=== PATIENT | female | born 1995 | race Caucasian/White ===

== ENCOUNTER → 2017-07-07 | Outpatient (CLI) | payer OTHER ==
[~2017-07-07] MED LIST: ACET500 PO; ALBU90OI INH; BIRTH CONTROL; CEFD300 PO; CODACE30 PO; CODACEE120 PO; CRUTCH USE; DIAZ2 PO; DIPH25 PO; ENOX40I SC; ERYT1OIN RIGHTEYE; ERYT500 PO; GUAI600T33 PO; HYDACE7.5L PO; IBUP100S PO; LIDO700A20 TOP; NITR100CA PO; OXYACE5T PO; RXIBUPSY PO; SULTRIEL; Zithromax250 MG PO
[2017-07-09 13:13] LABS: HPV Genotype 16 Not Detected (NOTDET); HPV Genotype 18 Not Detected (NOTDET); HPV High Risk Other Not Detected (NOTDET)
== END | disposition home or self-care (01) ==
LOC: LAB SHORT 16:41 → LAB 16:41
PROVIDERS: Obstetrics & Gynecology
DX: Z01.419 Encounter for gynecological examination (general) (routine) without abnormal findings (principal)
CPT/HCPCS: 87624; G0123

== ENCOUNTER 2017-09-21 19:20 | Emergency (ER) | payer OTHER ==
[~2017-09-21] VITALS: Ht 157.5 cm; Wt 72.6 kg
[~2017-09-21 19:20] MED LIST changes: -LIDO700A20 TOP
[2017-09-21] MEDS ORDERED: LIDO700A20 TOP (19:50)
== END 2017-09-21 20:05 | disposition home or self-care (01) ==
LOC: ER 19:20
DX: S16.1XXA Strain of muscle, fascia and tendon at neck level, initial encounter (principal); V43.52XA Car driver injured in collision with other type car in traffic accident, initial encounter; Z87.891 Personal history of nicotine dependence
CPT/HCPCS: 99282

== ENCOUNTER → 2018-08-25 | Outpatient (CLI) | payer OTHER ==
[~2018-08-25] MED LIST changes: +LIDO700A20 TOP; +Prenatal Compl1 EACH PO
== END ==
LOC: LAB 16:00 → LAB SHORT 16:00
DX: O30.033 Twin pregnancy, monochorionic/diamniotic, third trimester (principal); Z3A.35 35 weeks gestation of pregnancy
CPT/HCPCS: 87081; 87653

== ENCOUNTER 2018-08-27 06:07 | Inpatient (IN) | payer OTHER ==
[~2018-08-27] VITALS: Ht 160 cm; Wt 0.2 kg
[~2018-08-27 06:07] MED LIST changes: -Prenatal Compl1 EACH PO
[2018-08-27] MEDS ORDERED: Prenatal Compl1 EACH PO (06:22)
[2018-08-27 06:38] LABS: BASOPHILS ABSOLUTE AUTO 0.02 K/mm3 (0.00-0.23); BASOPHILS PERCENT AUTO 0 % (0-2); EOSINOPHILS ABSOLUTE AUTO 0.05 K/mm3 (0.00-0.68); EOSINOPHILS PERCENT AUTO 1 % (0-6); Hematocrit 28.6 % (33.0-51.0); Hemoglobin 8.8 g/dL (11.5-16.0); IMMATURE GRAN ABSOLUTE AUTO 0.11 K/mm3 (0.00-0.10); IMMATURE GRAN PERCENT AUTO 1 % (0-1); LYMPHOCYTES ABSOLUTE AUTO 1.91 K/mm3 (0.84-5.20); LYMPHOCYTES PERCENT AUTO 18 % (21-46); MONOCYTES PERCENT AUTO 5 % (4-13); Mean Corpuscular HGB 23.3 pg (26.0-34.0); Mean Corpuscular HGB Conc 30.8 g/dL (31.5-36.5); Mean Corpuscular Volume 76 fL (80-100); Mean Platelet Volume 9.7 fL (9.1-12.4); NEUTROPHILS ABSOLUTE AUTO 7.93 K/mm3 (1.96-9.15); NEUTROPHILS PERCENT AUTO 75 % (41-73); Platelet Count 234 K/mm3 (150-400); RDW Coefficient Variation 16.8 % (11.7-14.2); Red Blood Cell Count 3.78 M/mm3 (3.80-5.20); White Blood Cell Count 10.52 K/mm3 (4.00-11.30)
[2018-08-27 19:14] LABS: Hematocrit 24.5 % (33.0-51.0); Hemoglobin 7.3 g/dL (11.5-16.0)
--- NOTE | 2018-08-27 20:42 | NUR ---
HELPED PATIENT TO BATHROOM, DENIES DIZZINESS, DENIES SHORTNESS OF BREATH, BLEEDING IS SCANT, FUNDUS IS FIRM. VITALS ARE WITHIN NORMAL RANGE AT THIS TIME.
[2018-08-28 06:53] LABS: BASOPHILS ABSOLUTE AUTO 0.01 K/mm3 (0.00-0.23); BASOPHILS PERCENT AUTO 0 % (0-2); EOSINOPHILS ABSOLUTE AUTO 0.05 K/mm3 (0.00-0.68); EOSINOPHILS PERCENT AUTO 0 % (0-6); Hematocrit 22.8 % (33.0-51.0); Hemoglobin 6.7 g/dL (11.5-16.0); IMMATURE GRAN ABSOLUTE AUTO 0.11 K/mm3 (0.00-0.10); IMMATURE GRAN PERCENT AUTO 1 % (0-1); LYMPHOCYTES ABSOLUTE AUTO 1.81 K/mm3 (0.84-5.20); LYMPHOCYTES PERCENT AUTO 16 % (21-46); MONOCYTES PERCENT AUTO 6 % (4-13); Mean Corpuscular HGB 22.9 pg (26.0-34.0); Mean Corpuscular HGB Conc 29.4 g/dL (31.5-36.5); Mean Corpuscular Volume 78 fL (80-100); NEUTROPHILS ABSOLUTE AUTO 8.59 K/mm3 (1.96-9.15); NEUTROPHILS PERCENT AUTO 76 % (41-73); Platelet Count 199 K/mm3 (150-400); RDW Coefficient Variation 16.6 % (11.7-14.2); RDW Standard Deviation 46.7 fL (35.1-46.3); Red Blood Cell Count 2.92 M/mm3 (3.80-5.20); White Blood Cell Count 11.27 K/mm3 (4.00-11.30)
--- NOTE | 2018-08-28 08:19 | NUR ---
Pt sleeping soundly.
--- NOTE | 2018-08-28 19:52 | NUR ---
fresh ice water given to pt.
--- NOTE | 2018-08-28 22:53 | NUR ---
PT TEARFUL THAT SHE IS NOT PUMPING MUCH AT THIS TIME, RN ASSURED PT THAT THIS IS NORMAL. PT SUPPLEMENTING WITH FORMULA FOR THE FIRST TIME NOW, RN ASSURED PT THAT THIS DOES NOT MEAN SHE CAN'T BREASTFEED OR THAT SHE HAS TO SWITCH TO FORMULA, JUST THAT SHE WILL BE SUPPLEMENTING WITH IT UNTIL HER SUPPLY INCREASES. PT ENCOURAGED TO KEEP AND PUMPING, DRINK PLENTY OF WATER, AND MOTHERS MILK TEA WAS GIVEN.
[2018-08-29 06:30] LABS: BASOPHILS ABSOLUTE AUTO 0.04 K/mm3 (0.00-0.23); BASOPHILS PERCENT AUTO 0 % (0-2); EOSINOPHILS ABSOLUTE AUTO 0.16 K/mm3 (0.00-0.68); EOSINOPHILS PERCENT AUTO 1 % (0-6); Hematocrit 24.9 % (33.0-51.0); Hemoglobin 7.4 g/dL (11.5-16.0); IMMATURE GRAN ABSOLUTE AUTO 0.22 K/mm3 (0.00-0.10); IMMATURE GRAN PERCENT AUTO 2 % (0-1); LYMPHOCYTES ABSOLUTE AUTO 2.05 K/mm3 (0.84-5.20); LYMPHOCYTES PERCENT AUTO 15 % (21-46); MONOCYTES PERCENT AUTO 5 % (4-13); Mean Corpuscular HGB 23.6 pg (26.0-34.0); Mean Corpuscular HGB Conc 29.7 g/dL (31.5-36.5); Mean Corpuscular Volume 79 fL (80-100); Mean Platelet Volume 9.6 fL (9.1-12.4); NEUTROPHILS ABSOLUTE AUTO 10.83 K/mm3 (1.96-9.15); NEUTROPHILS PERCENT AUTO 77 % (41-73); Platelet Count 227 K/mm3 (150-400); RDW Coefficient Variation 16.9 % (11.7-14.2); RDW Standard Deviation 47.8 fL (35.1-46.3); Red Blood Cell Count 3.14 M/mm3 (3.80-5.20)
--- NOTE | 2018-08-29 15:02 | NUR ---
Pt resting in bed, changing nb clothes and diaper. Other nb asleep in open crib at pt's bedside. Pt denies needs at this time.
--- NOTE | 2018-08-29 19:31 | NUR ---
RN CHECKED WITH PT ABOUT FLU SHOT STATUS IN PREPARATION FOR DISCHARGE TO [facility], PT DECLINES FLU SHOT AT THIS TIME.
--- NOTE | 2018-08-29 22:08 | NUR ---
Pt given verbal and written discharge instructions. Pt verbalizes understanding and denies further questions at this time. Pt will follow up with Dr. Barreto as instructed and call for any problems or concerns. Pt will continue on Lovenox at home as well as Iron.
== END 2018-08-29 22:10 | disposition home or self-care (01) | DRG 806 ==
LOC: BC 06:07
PROVIDERS: Family Medicine; ADMIT Obstetrics & Gynecology
PROC: 10E0XZZ Delivery of Products of Conception, External Approach (ICD-10-PCS; principal; 2018-08-27)
PROC: 10D17Z9 Manual Extraction of Products of Conception, Retained, Via Natural or Artificial Opening (ICD-10-PCS; 2018-08-27)
DX: O43.023 Fetus-to-fetus placental transfusion syndrome, third trimester (principal); D68.51 Activated protein C resistance; Z37.2 Twins, both liveborn; O99.12 Other diseases of the blood and blood-forming organs and certain disorders involving the immune mechanism complicating childbirth; O72.0 Third-stage hemorrhage; O30.033 Twin pregnancy, monochorionic/diamniotic, third trimester; Z3A.36 36 weeks gestation of pregnancy
CPT/HCPCS: 36415; 51702; 85014; 85018; 85025; 85460; 86850; 86900; 86901; J1650; J2210; J2405; J2590; J2790; J7120

== ENCOUNTER → 2019-10-17 | Outpatient (CLI) | payer OTHER ==
[~2019-10-17] MED LIST changes: +Prenatal Compl1 EACH PO
[2019-10-19 15:09] LABS: HPV 16 Negative (Negative); HPV 18 Negative (Negative); HPV OTHER HR TYPES Negative (Negative)
== END | disposition home or self-care (01) ==
LOC: LAB 16:40 → LAB SHORT 16:40
PROVIDERS: Obstetrics & Gynecology
DX: Z01.419 Encounter for gynecological examination (general) (routine) without abnormal findings (principal)
CPT/HCPCS: 87624; G0123

== ENCOUNTER 2020-08-23 17:01 | Emergency (ER) | payer OTHER ==
[~2020-08-23] VITALS: Ht 157.5 cm; Wt 97.1 kg
[2020-08-23] MEDS ORDERED: FLUT1DIS2 INH (20:13)
== END 2020-08-23 20:19 | disposition home or self-care (01) ==
LOC: ER 17:01
DX: J45.901 Unspecified asthma with (acute) exacerbation (principal); Z88.0 Allergy status to penicillin; Z88.6 Allergy status to analgesic agent; Z91.09 Other allergy status, other than to drugs and biological substances; Z87.891 Personal history of nicotine dependence
CPT/HCPCS: 71046; 93005; 93010; 99284-25

== ENCOUNTER 2021-03-25 19:11 | Emergency (ER) | payer OTHER ==
[~2021-03-25] VITALS: Ht 157.5 cm; Wt 99.8 kg
[~2021-03-25 19:11] MED LIST changes: +FLUT1DIS2 INH
[2021-03-25 20:29] LABS: Influenza A, PCR NEGATIVE (NEGATIVE); Influenza B, PCR NEGATIVE (NEGATIVE); Resp Syncytial Virus, PCR NEGATIVE (NEGATIVE); SARS-Cov-2 (COVID-19) PCR, MMC NEGATIVE (NEGATIVE)
[2021-03-25] MEDS ORDERED: Prednisone20 MG PO (21:24)
== END 2021-03-25 21:45 | disposition home or self-care (01) ==
LOC: ER 19:11
PROVIDERS: Physician Assistant
DX: J45.909 Unspecified asthma, uncomplicated (principal); J06.9 Acute upper respiratory infection, unspecified; Z20.822 Contact with and (suspected) exposure to COVID-19; Z87.891 Personal history of nicotine dependence; Z88.0 Allergy status to penicillin
CPT/HCPCS: 0241U; 71045; 99284-25; A9270; J7512

== ENCOUNTER 2021-09-16 23:03 | Emergency (ER) | payer OTHER ==
[~2021-09-16] VITALS: Ht 157.5 cm; Wt 95.2 kg
[~2021-09-16 23:03] MED LIST changes: +Prednisone20 MG PO
== END 2021-09-17 00:36 | disposition home or self-care (01) ==
LOC: ER 23:03
DX: J02.9 Acute pharyngitis, unspecified (principal); J45.909 Unspecified asthma, uncomplicated; Z88.0 Allergy status to penicillin; Z88.6 Allergy status to analgesic agent; Z88.8 Allergy status to other drugs, medicaments and biological substances; Z87.891 Personal history of nicotine dependence
CPT/HCPCS: 87430; 96372; 99283-25; J1100; J1885